=== PATIENT | male | born 1935 | race Caucasian/White ===

== ENCOUNTER 2016-04-28 08:27 | Emergency (ER) | payer MEDICARE ==
[2016-04-28] MEDS ORDERED: ONDANSETRON 4 MG VIAL ONE (10:01)
[2016-04-28] MEDS ORDERED: MORPHINE 4 MG/ML SYR ONE ×2 (10:02→11:45)
[2016-04-28] MEDS ORDERED: PROPOFOL 20 ML 20 ML IV ONE (12:22)
[2016-04-28] MEDS ORDERED: SODIUM CHLORIDE 0.9% 1,000 ML ONE (12:23)
== END 2016-04-28 15:08 | disposition home or self-care (01) ==
LOC: ER 08:27
CPT/HCPCS: 27266; 73501; 73502; 96365 ×2; 96366 ×2; 96367 ×2; 99283; J2270; J2405; J2704